=== PATIENT | female | born 1975 | race Caucasian/White ===

== ENCOUNTER 2024-12-26 21:01 | Emergency (ER) | payer MEDICAID, SELFPAY ==
[2024-12-26 21:10] VITALS: BMI 32.2
[2024-12-26 21:16] VITALS: BP 126/84; PULSE 118; RESP 22; TEMP 36.9; O2SAT 98
[2024-12-26 21:51] LABS: Lactate (Lactic Acid) 1.0 mMol/L (0.4-2.0)
[2024-12-26 21:52] LABS: Basophils # (Auto) 0.0 Thou/mm3 (0.0-0.2); Basophils % (Auto) 0 % (0-2.5); Eosinophils # (Auto) 0.1 Thou/mm3 (0.0-0.5); Eosinophils % (Auto) 1 % (0-10); Hematocrit 41.5 % (36.0-46.0); Hemoglobin 13.4 g/dL (12.0-16.0); Immature Granulocytes Auto 0.03 Thou/mm3 (0.00-0.00); Lymphocytes # (Auto) 2.8 Thou/mm3 (1.0-4.8); Lymphocytes % (Auto) 27 % (10-50); Mean Corpuscular HGB Conc 32.3 g/dl (31.0-37.0); Mean Corpuscular Hemoglobin 26.9 pg (25.0-35.0); Mean Corpuscular Volume 83 fL (80-100); Monocytes # (Auto) 0.7 Thou/mm3 (0.0-0.8); Monocytes % (Auto) 6 % (0-12); Neutrophils # (Auto) 7.0 Thou/mm3 (1.8-7.7); Neutrophils % (Auto) 66 % (37-80); Nucleated Red Blood Cell # 0.00 Thou/mm3 (0.00-0.00); Nucleated Red Blood Cell % 0 /100 WBC (0); Platelet Count 382 Thou/mm3 (140-440); RDW Standard Deviation 41.5 fL (36.4-46.3); Red Blood Count 4.99 Miln/mm3 (4.00-5.20); White Blood Count 10.6 Thou/mm3 (3.6-11.0)
--- NOTE | 2024-12-26 21:54 | PD.EDNV ---
Nausea/Vomit./Diarrhea-RME/HPI General Chief complaint: Nausea/Vomiting/Diarrhea Stated complaint: NAUSEA VOMITING Time Seen by Provider: 12/26/24 21:32 Arrival date/time: 12/26/24 21:01 49F with history of DM1, CAD, and psych presents to ED with 1 day of N/V and having trouble keeping sugars up after patient started the lowest dose of Ozempic yesterday. Limitations: no limitations Related Data Home Medications ?Medication ?Instructions ?Recorded ?Confirmed clopidogrel 75 mg tablet (Plavix) 75 mg PO QDAY #0 tabs 11/24/16 01/15/19 insulin regular human 100 unit/mL See Rx Instructions .Route 11/24/16 01/15/19 injection solution (Novolin R .COMPLEX ##0 Regular U-100 Insulin) lisinopril 20 mg tablet 20 mg PO QDAY #0 tabs 11/24/16 01/15/19 ropinirole 1 mg tablet (Requip) 1 mg PO HS PRN Pain 01/16/18 01/15/19 insulin glargine 100 unit/mL (3 25 unit subcut BID 11/03/18 01/15/19 mL) subcutaneous pen (Basaglar KwikPen U-100 Insulin) pregabalin 150 mg capsule (Lyrica) 150 mg PO QDAY PRN Pain 11/03/18 01/15/19 hydrocodone 10 mg-acetaminophen 1 tab PO TID 01/15/19 01/15/19 325 mg tablet (Wenham) Previous Rx's ?Medication ?Instructions ?Recorded cyclobenzaprine 10 mg tablet 10 mg PO HS #14 tabs 07/21/21 amoxicillin 875 mg-potassium 1 tab PO BID #14 tabs 05/29/22 clavulanate 125 mg tablet doxycycline hyclate 100 mg capsule 100 mg PO BID #14 caps 05/29/22 Allergies Allergy/AdvReac Type Severity Reaction Status Date / Time meperidine (From Demerol) Allergy Severe Nausea Verified 03/28/24 13:23 codeine AdvReac Severe NAUSEA AND Verified 03/28/24 13:23 ABDOMINAL PAIN Review of Systems Review of Systems Systems Reviewed: All systems reviewed, normal except as documented Constitutional Constitutional: Reports system reviewed and no additional complaints, except as documented, Denies fever(s) and Denies headache(s) ENT Ears, Nose, Mouth, and Throat: Denies disequilibrium and Denies headache(s) Cardiovascular Cardiovascular: Reports system reviewed and no additional complaints, except as documented, Denies chest pain and Denies dyspnea Respiratory Respiratory: Reports system reviewed and no additional complaints, except as documented, Denies cough and Denies dyspnea Gastrointestinal Gastrointestinal: Reports system reviewed and no additional complaints, except as documented, Reports as per HPI, Denies abdominal pain, Reports nausea and Reports vomiting Neurologic Neurologic: Reports system reviewed and no additional complaints, except as documented, Denies confusion, Denies disequilibrium and Denies headache(s) Psychiatric Psychiatric: Denies confusion Past Medical History Past Medical History NEUROLOGIC: Positive Neurological Disorders and Migraine; Negative Seizures CARDIAC: Positive Cardiac Disorders, Myocardial Infarction, Atherosclerotic Heart Disease, Hypercholesterolemia and Hypertension; Negative Angina, Congestive Heart Failure, Edema or Cellulitis RESPIRATORY: Negative Chronic Obstructive Pulmonary Disease (COPD), Asthma, Tuberculosis or Sleep Apnea GASTROINTESTINAL: Negative Gastrointestinal Disorders or Colorectal Cancer GENITOURINARY: Negative Genitourinary Disorders or Renal Disease REPRODUCTIVE: Positive Endometriosis, Pelvic Inflammatory Disease and Previous Pregnancies; Negative Breast Cancer, Genital Herpes, Gonorrhea or Syphilis MUSCULOSKELETAL: Positive Musculoskeletal Disorders, Carpal Tunnel Syndrome, Fibromyalgia and Fractures; Negative Bone Cancer ENT: Negative Cataracts ENDOCRINE: Positive Endocrine Disorders, Diabetes Mellitus Type 1 and Diabetes Mellitus Type 2; Negative Hypothyroidism HEMATOLOGIC: Positive Blood Disorders and Anemia; Negative Sickle Cell Disease PSYCHO/SOCIAL: Positive Depression and Anxiety OTHER HISTORY: Positive Hospitalization, Falls, Blood Transfusions and Chicken Pox; Negative Autoimmune Disease, Down Syndrome, Developmental Delay, Blood Transfusion Reaction, Anesthesia Reactions, Organ Transplant, Chemotherapy, Radiation Therapy, Hyperbaric Therapy, MRSA, VRSA, Vancomycin-Resistant Enterococci, Human Immunodeficiency Virus (HIV), Measles, Mumps, Pertussis, Clostridium Difficile, Cancer, Breast Cancer, Cervical Cancer, Colorectal Cancer, Lung Cancer or Ovarian Cancer Family History FAMILY HISTORY: Positive Family Psychiatric Problems, Family Respiratory Disorders, Family Cardiac Disorders, Family Cancer and Family Surgery; Negative Family Gastrointestinal Problems or Family Anesthesia Reaction Surgical History SURGICAL: Positive Cardiac Surgery, Coronary Stent, Angiogram, Joint Replacement, Tubal Ligation and Section; Negative Pacemaker, Endocrine Surgery, Ear Surgery, Abdominal Surgery, Nephrectomy, Neurologic Surgery, Brain Shunt, Mastectomy, Lumpectomy, Hysterectomy or Organ Transplant Social History SMOKING STATUS: Never smoker SUBSTANCE USE: does not use ED Exam General Limitations: Present no limitations General appearance: Present alert and in no apparent distress Head Head exam: Present atraumatic Eye Eye exam: Present normal appearance, PERRL and EOMI ENT ENT exam: Present normal exam, normal oropharynx and mucous membranes moist Neck Neck exam: Present normal inspection, full ROM and trachea midline Chest Chest inspection: Present normal inspection and symmetric chest wall rise Respiratory Respiratory exam: Present normal lung sounds bilaterally Cardiovascular Cardiovascular exam: Present regular rate, normal rhythm and normal heart sounds Abdominal Exam Abdominal exam: Present soft and normal bowel sounds Extremities Exam Extremities exam: Present normal inspection and full ROM Back Exam Back exam: Present normal inspection and full ROM Neurological Exam Neurological exam: Present alert, oriented X3 and CN II-XII intact Psychiatric Psychiatric exam: Present normal affect and normal mood Skin Skin exam: Present warm, dry, intact and normal color Course Quality Measures none Orders Category Date Time Status Blood glucose [Bedside Blood Glucose] NOW Care 12/26/24 21:22 Completed CBC Stat Lab 12/26/24 21:40 Completed CMP [Comprehensive Metabolic Panel] Stat Lab 12/26/24 21:40 Results Lactate (Lactic Acid) Stat Lab 12/26/24 21:40 Completed Lipase Stat Lab 12/26/24 21:40 Results Dextrose 50% Syr [D50w Syringe Abboject] Med 12/26/24 21:32 Discontinued 50 ml IVP X1 ONE DiphenhydrAMINE INJ [Benadryl Inj] Med 12/26/24 21:32 Discontinued 12.5 mg IVP X1 ONE Metoclopramide Inj [Reglan Inj] Med 12/26/24 21:32 Discontinued 10 mg IVP X1 ONE Vital Signs Vital signs: Vital Signs Temperature 98.4 F 12/26/24 21:16 Pulse Rate 118 H 12/26/24 21:16 Respiratory Rate 22 H 12/26/24 21:16 Blood Pressure 126/84 12/26/24 21:16 Pulse Oximetry (%) 98 12/26/24 21:16 Oxygen Delivery Method Room Air 12/26/24 21:16 O2 at 98% on RA and WNLs Nausea/Vomiting/Diarrhea MDM Narrative MDM Narrative:: 49F with history of DM1, CAD, and psych presents to ED with 1 day of N/V and having trouble keeping sugars up after patient started the lowest dose of Ozempic yesterday. Physical exam reveals tired-appearing individual. Patient is afebrile, calm, and alert. BS 73. Patient AMA'd because she felt better after meds and her sugars went up to low 110s w/o any intervention. Counseled to stop taking Ozempic as it isn't indicated for DM1. Patient data External records reviewed:: [facility] previous records Clinical information provided by:: patient Social determinants that could affect healthcare access:: mental health Patient has the following chronic illnesses:: DM, psych, CAD How is presenting disease/condition affected by chronic disease/condition?: exacerbated by Evaluation data The following diagnostics were reviewed and interpreted by me:: lab results Lab and/or radiology exams considered but not ordered:: ordered Interpretation Summary: above Medications / Prescriptions Medications / Prescriptions considered but not ordered:: ordered Medication administrations:: Medication Administration History Discontinued Medications Dextrose (Dextrose 50%-Water Inj 50 Ml Syringe) 50 ml IVP X1 ONE Stop: 12/26/24 21:33 Diphenhydramine HCl (Diphenhydramine Inj 50 Mg/Ml Vial) 12.5 mg IVP X1 ONE Stop: 12/26/24 21:33 Last Admin: 12/26/24 22:10 Dose: 12.5 mg Documented By: SAJAN Metoclopramide HCl (Metoclopramide Inj 5 Mg/Ml Vial 2 Ml) 10 mg IVP X1 ONE; Protocol Stop: 12/26/24 21:33 Last Admin: 12/26/24 22:09 Dose: 10 mg Documented By: SAJAN above Consultations Consultation(s) initiated? (list below): No Diagnosis Nausea Differential Diagnosis: traveler's diarrhea, food poisoning, gastroenteritis, clostridium difficile infection, drug-induced nausea and vomiting and dehydration Most likely diagnosis given after review of the tests above:: drug-induced N/V Admission Indicated Admission indicated?: not indicated Admission Request Was there a request for admission?: No Disposition Plan Disposition Plan: other (specify) (AMA'd) Discharge Plan Plan Patient Disposition: Left Against Medical Advice Prescriptions/Referrals Prescriptions/Med Rec: No Action lisinopril 20 MG tablet 20 mg PO QDAY Qty: 0 clopidogrel [Plavix] 75 MG tablet 75 mg PO QDAY Qty: 0 Novolin R Regular U100 Insulin 100 U/ML solution See Rx Instructions .ROUTE .COMPLEX Qty: 0 Rx Instructions: PER SLIDING SCALE SQ TID Lyrica 150 mg Capsule 150 mg PO QDAY PRN (Reason: Pain) Gerardo Capone U-100 Insulin 100 unit/mL (3 mL) Insulin Pen 25 unit SUBCUT BID cyclobenzaprine 10 mg tablet 10 mg PO HS Qty: 14 0RF ropinirole [Requip] 1 mg Tablet 1 mg PO HS PRN (Reason: Pain) hydrocodone-acetaminophen [Wenham] 10-325 mg Tablet 1 tab PO TID amoxicillin-pot clavulanate 875-125 mg tablet 1 tab PO BID Qty: 14 0RF doxycycline hyclate 100 mg capsule 100 mg PO BID Qty: 14 0RF Referrals: Ziyad Pablo MD [Primary Care Provider] - In 1 week Problem List Clinical Impression: Drug-induced nausea and vomiting Patient/Caregiver Discharge Instructions Print Language: [place]i PA/VEHICLE CHECK IN CLERK Supervising Physician PA/VEHICLE CHECK IN CLERK Supervising Physician: Dr. Gonzales
[2024-12-26] MEDS: METOCLOPRAMIDE INJ 5 MG/ML VIAL 2 ML 10 MG IVP (22:09)
[2024-12-26 22:53] LABS: Alanine Aminotransferase 14 U/L (10-49); Albumin, Serum 5.4 gm/dL (3.5-5.0); Albumin/Globulin Ratio 1.8 (1.2-2.2); Alkaline Phosphatase 100 U/L (46-116); Anion Gap 11 (7-16); Aspartate Amino Transferase 10 U/L (0-34); BUN/Creatinine Ratio 13 Ratio (12-20); Bilirubin,Total 0.3 mg/dL (0.3-1.2); Blood Urea Nitrogen 16 mg/dL (9-23); Calcium 11.3 mg/dL (8.3-10.6); Calcium (Corrected) 11.3 mg/dL (8.5-10.1); Carbon Dioxide 25.8 mMol/L (20.0-31.0); Chloride 106 mMol/L (98-107); Creatinine (Component) 1.2 mg/dL (0.6-1.3); Estimated Creatinine Clearance 59.9 mL/min (>60); Globulin 3.0 gm/dL (2.3-3.5); Glucose 76 mg/dL (74-106); Osmolality,Calculated 285 (275-295); Potassium 3.1 mMol/L (3.4-5.1); Sodium 143 mMol/L (136-145); Total Protein 8.4 gm/dL (5.7-8.2); eGFR 55 See Note
[2024-12-26 23:04] LABS: Lipase 26 U/L (12-53)
== END 2024-12-26 22:47 | disposition left against medical advice (07) ==
LOC: SERX 22:45
PROVIDERS: Physician Assistant; Emergency Provider Emergency Medicine; PCP Family Medicine
DX: R11.2 Nausea with vomiting, unspecified (principal); T38.3X5A Adverse effect of insulin and oral hypoglycemic [antidiabetic] drugs, initial encounter; Z53.29 Procedure and treatment not carried out because of patient's decision for other reasons
CPT/HCPCS: 36415; 80053; 80307; 81001; 81025; 83605; 83690; 85025; 96374; 96375; 99283; J1200; J2765